=== PATIENT | male | born 1945 | race Hispanic/Latino ===

== ENCOUNTER → 2017-11-01 | Outpatient (CLI) | payer MEDICARE | END | disposition home or self-care (01) | LOC: RAH 11:32 | PROVIDERS: ATTEND Urology | DX: N28.1 Cyst of kidney, acquired (principal) | CPT/HCPCS: 76770 ==

== ENCOUNTER 2017-11-03 13:10 | Emergency (ER) | payer MEDICARE ==
[2017-11-03] MEDS ORDERED: TETANUS/DIPHTHERIA TOXOID [ADULT] 0.5 ML VIAL IM ONE (15:03)
== END 2017-11-03 15:10 | disposition home or self-care (01) ==
LOC: EDH 13:10
DX: S01.01XA Laceration without foreign body of scalp, initial encounter (principal); I10 Essential (primary) hypertension; E78.5 Hyperlipidemia, unspecified; Z98.890 Other specified postprocedural states; Z88.0 Allergy status to penicillin; Z87.891 Personal history of nicotine dependence; W18.39XA Other fall on same level, initial encounter; Y93.89 Activity, other specified; Y92.098 Other place in other non-institutional residence as the place of occurrence of the external cause; Y99.8 Other external cause status
CPT/HCPCS: 12032; 70450; 90471; 90714

== ENCOUNTER 2018-12-19 07:13 | Day surgery (SDC) | payer MEDICARE ==
[~2018-12-19 07:13] MED LIST: CLOP75TA14 PO; LISI-617 PO; SODIUM CHLORIDE 0.9% 1000ML 1,000 ML IV ONE
[2018-12-19 07:55] VITALS: BP 174/91
[2018-12-19] MEDS ORDERED: PREG50 PO (07:59)
[2018-12-19] MEDS ORDERED: LISI40TA4 PO (07:59)
[2018-12-19] MEDS ORDERED: ATOR40TA71 PO (07:59)
[2018-12-19 08:07] LABS: BASOPHILS % (AUTO) 0.5 % (0.0-5.0); HEMATOCRIT 40.8 % (42-54); MEAN CORPUSCULAR HEMOGLOBIN 31.4 pg (27.0-33.0); MEAN CORPUSCULAR HGB CONC 33.5 g/dL (32.0-36.0); MEAN CORPUSCULAR VOLUME 93.9 fL (79-99); MONOCYTES % (AUTO) 10.3 % (3.0-13.0); NEUTROPHILS % (AUTO) 70.2 % (40.0-77.0); PLATELET COUNT (AUTO) 155 K/uL (130-400); RED BLOOD CELL COUNT(AUTO) 4.35 MIL/uL (4.50-6.20); RED CELL DISTRIBUTION WIDTH 13.4 % (11.0-15.5); WHITE BLOOD COUNT (AUTO) 6.8 K/uL (4.8-10.8)
[2018-12-19 08:35] LABS: INR 1.1 (0.85-1.15); PROTHROMBIN TIME 11.5 SEC (9.6-11.6)
[2018-12-19 09:29] VITALS: BP 124/69
[2018-12-19 09:34] VITALS: BP 113/65
[2018-12-19 09:39] VITALS: BP 123/72
[2018-12-19 09:44] VITALS: BP 120/72
[2018-12-19 09:49] VITALS: BP 118/72
--- NOTE | 2018-12-19 09:57 | NUR ---
dc pt dc home via [facility],no distress noted. denies any pain or discomforts. accompanied by spouse, dc instructions given to pt spouse earlier, instructed to f/u with dr. neumann, continue home meds. pts spouse verbalized understanding .
== END 2018-12-19 09:57 | disposition home or self-care (01) ==
LOC: ENDO 07:13
PROVIDERS: ATTEND Internal Medicine
DX: K44.9 Diaphragmatic hernia without obstruction or gangrene (principal); K86.89 Other specified diseases of pancreas; I25.10 Atherosclerotic heart disease of native coronary artery without angina pectoris; E78.5 Hyperlipidemia, unspecified; I10 Essential (primary) hypertension; Z79.899 Other long term (current) drug therapy; Z85.46 Personal history of malignant neoplasm of prostate; Z98.890 Other specified postprocedural states; Z87.891 Personal history of nicotine dependence; Z86.73 Personal history of transient ischemic attack (TIA), and cerebral infarction without residual deficits
CPT/HCPCS: 36415; 43237; 85025; 85610; 93005; A4606; J7030; 43232

== ENCOUNTER → 2020-11-02 | Outpatient (CLI) | payer MEDICARE ==
[~2020-11-02] MED LIST changes: +ATOR40TA71 PO; -LISI-617 PO; +LISI40TA9 PO; +PERFLUTREN PROTEIN-A MICROSPHR 0.22 MG/ML VIAL IV ONE; +PREG50 PO; -SODIUM CHLORIDE 0.9% 1000ML 1,000 ML IV ONE
== END | disposition home or self-care (01) ==
LOC: RAH 09:09
PROVIDERS: ATTEND Internal Medicine Cardiovascular Disease
DX: I35.1 Nonrheumatic aortic (valve) insufficiency (principal); R94.31 Abnormal electrocardiogram [ECG] [EKG]
CPT/HCPCS: C8929; Q9956; 93356

== ENCOUNTER → 2020-11-04 | Outpatient (CLI) | payer MEDICARE ==
[~2020-11-04] MED LIST changes: -PERFLUTREN PROTEIN-A MICROSPHR 0.22 MG/ML VIAL IV ONE; +REGADENOSON 0.4 MG/5 ML PF SYG IVP SCH
== END | disposition home or self-care (01) ==
LOC: SHCH 08:39
PROVIDERS: ATTEND Internal Medicine Cardiovascular Disease
DX: I25.10 Atherosclerotic heart disease of native coronary artery without angina pectoris (principal); R06.00 Dyspnea, unspecified
CPT/HCPCS: 78452; 93017; 96374; A9500 ×2

== ENCOUNTER 2020-11-17 08:33 | Day surgery (SDC) | payer MEDICARE ==
[2020-11-15 13:46] LABS: BASOPHILS % (AUTO) 0.4 % (0.0-5.0); EOSINOPHILS % (AUTO) 1.9 % (0.0-8.0); LYMPHOCYTES % (AUTO) 22.1 % (21.0-51.0); MEAN CORPUSCULAR HEMOGLOBIN 30.7 pg (27.0-33.0); MEAN CORPUSCULAR HGB CONC 32.7 g/dL (32.0-36.0); MONOCYTES % (AUTO) 11.1 % (3.0-13.0); NEUTROPHILS % (AUTO) 64.3 % (40.0-77.0); PLATELET COUNT (AUTO) 169 K/uL (130-400); RED BLOOD CELL COUNT(AUTO) 4.36 MIL/uL (4.50-6.20); RED CELL DISTRIBUTION WIDTH 13.2 % (11.0-15.5); WHITE BLOOD COUNT (AUTO) 8.4 K/uL (4.8-10.8)
[2020-11-15 13:56] LABS: INR 1.09 (0.85-1.15); POTASSIUM 4.5 mmol/L (3.5-5.1); PROTHROMBIN TIME 11.8 SEC (9.6-11.6)
[2020-11-15 13:58] LABS: PARTIAL THROMBOPLASTIN TIME 27.6 SEC (26.3-35.5)
[~2020-11-17] VITALS: Ht 175.3 cm; Wt 104.3 kg
[2020-11-17] VITALS (10 sets, daily range): BP systolic 147–173; BP diastolic 68–94
[~2020-11-17 08:33] MED LIST changes: +AMLO2.5T4 PO; +ASPI-1443 PO; -ATOR40TA71 PO; -LISI40TA9 PO; -PREG50 PO; -REGADENOSON 0.4 MG/5 ML PF SYG IVP SCH; +TAMS-1 PO; +[UNRECOGNIZED DRUG - OTHER] PO
[2020-11-17] MEDS ORDERED: HYDR12.54 PO (09:44)
[2020-11-17] MEDS ORDERED: SODIUM CHLORIDE 0.9% 1000ML 1,000 ML IV ONE (09:53)
[2020-11-17 10:29] LABS: APPEARANCE,URINE Clear (CLEAR); BILIRUBIN,URINE Negative (NEGATIVE); COLOR,URINE Yellow (YELLOW); GLUCOSE, URINE (UA) Negative (NEGATIVE); KETONES,URINE Negative (NEGATIVE); LEUKOCYTE ESTERASE ,URINE Small (NEGATIVE); NITRATE,URINE Negative (NEGATIVE); OCCULT BLOOD,URINE Negative (NEGATIVE); PROTEIN,URINE Negative (NEGATIVE)
[2020-11-17 10:44] LABS: BACTERIA,URINE Few /HPF (None Seen); RBC,URINE 0-1 /HPF (0-1)
[2020-11-17] MEDS ORDERED: IOHEXOL-350 75 ML VIAL IV ONE (10:58)
[2020-11-17] MEDS ORDERED: SODIUM BICARB 50MEQ 50ML VIAL 50 ML ONE (10:58)
[2020-11-17] MEDS ORDERED: NITROGLYCERIN 2 MG/VIAL VIAL IV ONE (10:58)
[2020-11-17] MEDS ORDERED: HEPARIN SODIUM 1000UNIT/ML 10ML VIAL ONE (10:58)
[2020-11-17] MEDS ORDERED: LIDOCAINE HCL 400MG/20ML VIAL ONE (10:58)
[2020-11-17] MEDS ORDERED: NICARDIPINE HCL 25 MG/10 ML ML IV ONE (10:58)
[2020-11-17] MEDS ORDERED: IOHEXOL 350 MG/ML 100ML INFUS..BTL IV ONE ×2 (11:22→12:13)
[2020-11-17] MEDS ORDERED: BIVALIRUDIN 250 MG/VIAL IV ONE (11:38)
[2020-11-17] MEDS ORDERED: MIDAZOLAM HCL 1 MG/ML 2ML VIAL ONE (11:38)
[2020-11-17] MEDS ORDERED: FENTANYL CITRATE PF 50 MCG/1 ML 2ML VIAL ONE (11:38)
[2020-11-17] MEDS ORDERED: ENALAPRILAT DIHYDRATE 1.25 MG/ML 2ML VIAL IVP ONE (12:38)
[2020-11-17] MEDS ORDERED: GLUCAGON 1MG KIT 1 MG ML IM PRN (12:45)
[2020-11-17] MEDS ORDERED: SODIUM CHLORIDE 0.9% 1000ML 1,000 ML IV SCH (12:45)
[2020-11-17] MEDS ORDERED: DEXTROSE 50%-WATER 50 ML DISP.SYRIN IV PRN (12:45)
[2020-11-17] MEDS ORDERED: HYDR25TA PO (12:49)
[2020-11-17] MEDS ORDERED: LOSA25TA41 PO (12:49)
[2020-11-17] MEDS ORDERED: AMLO-257 PO (12:49)
== END 2020-11-17 17:10 | disposition home or self-care (01) ==
LOC: DAH 08:33
PROVIDERS: ATTEND Internal Medicine Cardiovascular Disease
DX: I25.10 Atherosclerotic heart disease of native coronary artery without angina pectoris (principal); I27.20 Pulmonary hypertension, unspecified; Z20.822 Contact with and (suspected) exposure to COVID-19; I11.0 Hypertensive heart disease with heart failure; I50.42 Chronic combined systolic (congestive) and diastolic (congestive) heart failure; E78.5 Hyperlipidemia, unspecified; I49.1 Atrial premature depolarization; E66.9 Obesity, unspecified; G62.9 Polyneuropathy, unspecified; I24.9 Acute ischemic heart disease, unspecified; Z79.01 Long term (current) use of anticoagulants; Z68.33 Body mass index [BMI] 33.0-33.9, adult; Z98.890 Other specified postprocedural states; Z80.42 Family history of malignant neoplasm of prostate
CPT/HCPCS: 36415; 71045; 80048; 81001; 82948; 85025; 85610; 85730; 93005; 93460; A4215; A4216; A4221; A4222; A4223 ×3; A4335; A4606; A4663; C1760; C1769; C1894 ×4; J1644; J3490 ×4; J7030; Q9965 ×2; Q9967 ×2; 96360; 96361; J0583; J2250; J3010

== ENCOUNTER 2021-06-05 19:43 | Observation (INO) | payer OTHER, MEDICARE ==
[~2021-06-05] VITALS: Ht 160 cm; Wt 98.6 kg
[~2021-06-05 19:43] MED LIST changes: +AMLO-257 PO; -AMLO2.5T4 PO; +HYDR25TA PO; +LOSA25TA41 PO
[2021-06-05 20:05] LABS: BASOPHILS % (AUTO) 0.2 % (0.0-5.0); EOSINOPHILS % (AUTO) 0.2 % (0.0-8.0); LYMPHOCYTES % (AUTO) 16.3 % (21.0-51.0); MEAN CORPUSCULAR HEMOGLOBIN 29.8 pg (27.0-33.0); MEAN CORPUSCULAR HGB CONC 32.3 g/dL (32.0-36.0); MEAN CORPUSCULAR VOLUME 92.1 fL (79-99); MONOCYTES % (AUTO) 13.1 % (3.0-13.0); NEUTROPHILS % (AUTO) 69.9 % (40.0-77.0); PLATELET COUNT (AUTO) 149 K/uL (130-400); RED BLOOD CELL COUNT(AUTO) 4.67 MIL/uL (4.50-6.20); RED CELL DISTRIBUTION WIDTH 13.2 % (11.0-15.5); WHITE BLOOD COUNT (AUTO) 11.5 K/uL (4.8-10.8)
[2021-06-05] MEDS ORDERED: NITROGLYCERIN 1GM OINT 1 INCH/1GM TD ONE ×2 (20:23→20:30)
[2021-06-05] MEDS ORDERED: ASPIRIN 325MG TAB ONE (20:23)
[2021-06-05] MEDS ORDERED: NITROGLYCERIN 0.4 MG SL TAB SL ONE (20:27)
[2021-06-05 20:28] LABS: POTASSIUM 3.8 mmol/L (3.5-5.1)
[2021-06-05 20:29] LABS: B-TYPE NATRIURETIC PEPTIDE 89 pg/mL (0-100)
[2021-06-05 20:30] LABS: INR 1.1 (0.85-1.15); PROTHROMBIN TIME 11.9 SEC (9.6-11.6)
[2021-06-05] MEDS ORDERED: ASPIRIN 325MG TAB PO ONE (20:30)
[2021-06-05] MEDS ORDERED: NITROGLYCERIN 0.4 MG SL TAB SL PRN ×2 (20:30→22:00)
[2021-06-05 20:33] LABS: ALBUMIN 3.9 g/dL (3.5-5.0); TOTAL PROTEIN, SERUM 8.5 g/dL (6.0-8.3)
[2021-06-05] MEDS ORDERED: GLUCAGON 1MG KIT 1 MG ML IM PRN (22:00)
[2021-06-05] MEDS: NITROGLYCERIN 1GM OINT 1 INCH/1GM TD SCH (22:00)
[2021-06-05] MEDS ORDERED: HYDRALAZINE 20MG/ML VIAL IV PRN (22:00)
[2021-06-05] MEDS ORDERED: LACTULOSE 20 GM/30 ML UDCUP PO PRN (22:00)
[2021-06-05] MEDS ORDERED: ONDANSETRON 4MG INJ IV PRN (22:00)
[2021-06-05] MEDS ORDERED: ACETAMINOPHEN 325 MG TAB PO PRN ×2 (22:00)
[2021-06-05] MEDS ORDERED: DEXTROSE 50%-WATER 50 ML DISP.SYRIN IV PRN (22:00)
[2021-06-06] VITALS (8 sets, daily range): BP systolic 105–149; BP diastolic 54–90
[2021-06-06 05:18] LABS: BASOPHILS % (AUTO) 0.2 % (0.0-5.0); EOSINOPHILS % (AUTO) 0.4 % (0.0-8.0); HEMATOCRIT 35.8 % (42-54); LYMPHOCYTES % (AUTO) 16.8 % (21.0-51.0); MEAN CORPUSCULAR HGB CONC 32.7 g/dL (32.0-36.0); MEAN CORPUSCULAR VOLUME 91.8 fL (79-99); MONOCYTES % (AUTO) 12.8 % (3.0-13.0); NEUTROPHILS % (AUTO) 69.5 % (40.0-77.0); PLATELET COUNT (AUTO) 143 K/uL (130-400); RED CELL DISTRIBUTION WIDTH 13.4 % (11.0-15.5); WHITE BLOOD COUNT (AUTO) 9.9 K/uL (4.8-10.8)
[2021-06-06 05:35] LABS: HEMOGLOBIN A1C 6.3 % (4.0-6.0)
[2021-06-06 05:42] LABS: CREATININE 0.9 mg/dL (0.5-1.5); MAGNESIUM 1.9 mg/dL (1.80-2.40); POTASSIUM 3.4 mmol/L (3.5-5.1); THYROID STIMULATING HORMONE 0.54 uIU/mL (0.36-3.74)
[2021-06-06] MEDS: NITROGLYCERIN 1GM OINT 1 INCH/1GM TD SCH (06:48)
[2021-06-06] MEDS ORDERED: NITROGLYCERIN 1GM OINT 1 INCH/1GM TD PRN (08:00)
[2021-06-06] MEDS ORDERED: POTASSIUM CHLORIDE 20MEQ/100ML 100 ML IV PRN (08:30)
[2021-06-06] MEDS ORDERED: MAGNESIUM 2GM PREMIX 50ML 50 ML IV PRN (08:30)
[2021-06-06] MEDS ORDERED: POTASSIUM CHLORIDE 10% ELIXIR 20 MEQ/15 ML UDCUP PO PRN (08:30)
[2021-06-06] MEDS ORDERED: LIDOCAINE HCL-MPF 1% 2ML VIAL IV PRN (08:30)
[2021-06-06] MEDS ORDERED: METOPROLOL TARTRATE 25 MG TAB PO SCH (09:00)
[2021-06-06] MEDS: ASPIRIN 81 MG EC TAB PO SCH (09:39)
[2021-06-06] MEDS: ISOSORBIDE MONO 60MG SR TAB PO SCH (09:39)
[2021-06-06] MEDS: FAMOTIDINE 20MG TAB PO SCH ×2 (09:39→20:53)
[2021-06-06] MEDS: METOPROLOL TARTRATE 50 MG TAB PO SCH ×2 (09:40→20:53)
[2021-06-06] MEDS: ENOXAPARIN SODIUM 100 MG/1 ML SQ SCH ×2 (09:41→20:54)
[2021-06-06] MEDS ORDERED: FAMOTIDINE 20MG TAB ONE (20:50)
[2021-06-06] MEDS ORDERED: METOPROLOL TARTRATE 50 MG TAB ONE (20:50)
[2021-06-06] MEDS ORDERED: ATORVASTATIN 40 MG TABLET ONE (20:50)
[2021-06-06] MEDS ORDERED: ENOXAPARIN SODIUM 100 MG/1 ML SQ ONE (20:51)
[2021-06-06] MEDS ORDERED: ATORVASTATIN 40 MG TABLET PO SCH (21:00)
[2021-06-07 04:00] VITALS: BP 131/66
[2021-06-07 08:00] VITALS: BP 129/71
[2021-06-07 08:14] LABS: CREATININE 0.9 mg/dL (0.5-1.5); POTASSIUM 3.5 mmol/L (3.5-5.1)
[2021-06-07] MEDS: ENOXAPARIN SODIUM 100 MG/1 ML SQ SCH (08:53)
[2021-06-07] MEDS: KCL 20 MEQ ERTAB PO PRN ×2 (08:53→11:21)
[2021-06-07] MEDS: METOPROLOL TARTRATE 50 MG TAB PO SCH (08:54)
[2021-06-07] MEDS: ASPIRIN 81 MG EC TAB PO SCH (08:54)
[2021-06-07] MEDS: FAMOTIDINE 20MG TAB PO SCH (08:54)
[2021-06-07] MEDS: ISOSORBIDE MONO 60MG SR TAB PO SCH (08:54)
[2021-06-07 12:00] VITALS: BP 121/66
[2021-06-07 16:00] VITALS: BP 125/68
[2021-06-07] MEDS ORDERED: ISOS60TA77 PO (17:29)
[2021-06-07] MEDS ORDERED: METO25TA6 PO (17:29)
[2021-06-08] MEDS ORDERED: ASPIRIN 81 MG EC TAB PO SCH (09:00)
[2021-06-08] MEDS ORDERED: CLOPIDOGREL 75MG TAB PO SCH (09:00)
[2021-06-08] MEDS ORDERED: TAMSULOSIN HCL 0.4 MG CAP.ER.24H PO SCH (09:00)
[2021-06-08] MEDS ORDERED: LOSARTAN 25 MG TABLET PO SCH (09:00)
[2021-06-08] MEDS ORDERED: AMLODIPINE 5 MG TAB PO SCH (09:00)
[2021-06-08] MEDS ORDERED: HYDROCHLOROTHIAZIDE 25 MG TABLET PO SCH (09:00)
== END 2021-06-07 18:34 | disposition home or self-care (01) ==
LOC: EDH 19:43 → EDHIP 21:53 → 3DH 06-06 00:16 → UNDODISOB 06-06 19:22 → 2AH 06-06 21:28
PROVIDERS: ADMIT Internal Medicine; ATTEND Internal Medicine
DX: U07.1 COVID-19 (principal); I25.110 Atherosclerotic heart disease of native coronary artery with unstable angina pectoris; R07.89 Other chest pain; I10 Essential (primary) hypertension; E78.5 Hyperlipidemia, unspecified; A01.4 Paratyphoid fever, unspecified; J96.11 Chronic respiratory failure with hypoxia; J44.9 Chronic obstructive pulmonary disease, unspecified; R73.03 Prediabetes; Z79.02 Long term (current) use of antithrombotics/antiplatelets; Z87.891 Personal history of nicotine dependence; Z79.82 Long term (current) use of aspirin; Z95.1 Presence of aortocoronary bypass graft
CPT/HCPCS: 36415 ×3; 71045; 80048 ×2; 80053; 80061; 82550 ×3; 82948 ×4; 83036; 83735 ×2; 83874 ×2; 83880 ×2; 84443; 84484 ×3; 85025 ×2; 85610; 85730; 87635; 93005 ×2; 94760 ×2; 96372 ×2; 99285; G0378 ×45; J1650 ×3

== ENCOUNTER → 2021-10-24 | Outpatient (CLI) | payer OTHER, MEDICARE ==
[~2021-10-24] MED LIST changes: -AMLO-257 PO; -HYDR25TA PO; +ISOS60TA77 PO; -LOSA25TA41 PO; +METO25TA6 PO
[2021-10-24 12:44] LABS: BASOPHILS % (AUTO) 0.3 % (0.0-5.0); EOSINOPHILS % (AUTO) 2.1 % (0.0-8.0); HEMATOCRIT 40.9 % (42-54); LYMPHOCYTES % (AUTO) 21.9 % (21.0-51.0); MEAN CORPUSCULAR HEMOGLOBIN 30.1 pg (27.0-33.0); MEAN CORPUSCULAR HGB CONC 32.3 g/dL (32.0-36.0); MEAN CORPUSCULAR VOLUME 93.2 fL (79-99); MONOCYTES % (AUTO) 9.4 % (3.0-13.0); NEUTROPHILS % (AUTO) 65.9 % (40.0-77.0); PLATELET COUNT (AUTO) 187 K/uL (130-400); RED BLOOD CELL COUNT(AUTO) 4.39 MIL/uL (4.50-6.20); RED CELL DISTRIBUTION WIDTH 13.4 % (11.0-15.5); WHITE BLOOD COUNT (AUTO) 8.9 K/uL (4.8-10.8)
[2021-10-24 12:59] LABS: ALBUMIN 3.6 g/dL (3.5-5.0); BILIRUBIN,TOTAL 0.8 mg/dL (0.2-1.0); CREATININE 0.9 mg/dL (0.5-1.5); POTASSIUM 4.5 mmol/L (3.5-5.1); TOTAL PROTEIN, SERUM 7.7 g/dL (6.0-8.3)
== END | disposition home or self-care (01) ==
LOC: LAB 09:12
PROVIDERS: ATTEND Internal Medicine Cardiovascular Disease
DX: I25.10 Atherosclerotic heart disease of native coronary artery without angina pectoris (principal); E78.00 Pure hypercholesterolemia, unspecified
CPT/HCPCS: 36415; 80053; 80061; 85025

== ENCOUNTER → 2022-01-19 | Outpatient (CLI) | payer OTHER, MEDICARE ==
[2022-01-19 12:38] LABS: ALBUMIN 3.6 g/dL (3.5-5.0); POTASSIUM 4.3 mmol/L (3.5-5.1); TOTAL PROTEIN, SERUM 7.7 g/dL (6.0-8.3)
== END | disposition home or self-care (01) ==
LOC: LAB 09:27
PROVIDERS: ATTEND Internal Medicine Cardiovascular Disease
DX: E78.5 Hyperlipidemia, unspecified (principal)
CPT/HCPCS: 36415; 80053; 80061

== ENCOUNTER 2022-02-02 07:04 | Day surgery (SDC) | payer OTHER, MEDICARE ==
[2022-01-31 13:58] LABS: BASOPHILS % (AUTO) 0.2 % (0.0-5.0); EOSINOPHILS % (AUTO) 1.4 % (0.0-8.0); HEMATOCRIT 40.9 % (42-54); LYMPHOCYTES % (AUTO) 22.4 % (21.0-51.0); MEAN CORPUSCULAR HEMOGLOBIN 29.2 pg (27.0-33.0); MEAN CORPUSCULAR HGB CONC 32.5 g/dL (32.0-36.0); MEAN CORPUSCULAR VOLUME 89.7 fL (79-99); MONOCYTES % (AUTO) 13.6 % (3.0-13.0); NEUTROPHILS % (AUTO) 62.1 % (40.0-77.0); PLATELET COUNT (AUTO) 181 K/uL (130-400); RED BLOOD CELL COUNT(AUTO) 4.56 MIL/uL (4.50-6.20); RED CELL DISTRIBUTION WIDTH 13.8 % (11.0-15.5); WHITE BLOOD COUNT (AUTO) 8.7 K/uL (4.8-10.8)
[2022-01-31 14:11] LABS: CREATININE 0.9 mg/dL (0.5-1.5); POTASSIUM 3.9 mmol/L (3.5-5.1)
[2022-01-31 14:15] LABS: INR 1.07 (0.85-1.15); PROTHROMBIN TIME 11.6 SEC (9.6-11.6)
[2022-01-31 14:16] LABS: PARTIAL THROMBOPLASTIN TIME 29.2 SEC (26.3-35.5)
[2022-01-31 15:32] LABS: B-TYPE NATRIURETIC PEPTIDE 55 pg/mL (0-100)
[2022-02-01 12:19] VITALS: BP 155/86
[2022-02-02] VITALS (7 sets, daily range): BP systolic 106–138; BP diastolic 60–73
[~2022-02-02] VITALS: Ht 170.2 cm; Wt 100.1 kg
[~2022-02-02 07:04] MED LIST changes: +0.9% NACL 500ML IV.SOLN 500 ML IV SCH; +AMLO-257 PO; +ATOR40TA69 PO; +EZET10TA48 PO; -ISOS60TA77 PO; +LOSA25TA41 PO; +MELO-106 PO; +METO-408 PO; -METO25TA6 PO
[2022-02-02] MEDS ORDERED: BICA50TA7 PO (08:12)
[2022-02-02] MEDS ORDERED: ALBU8.5H8 IH (08:13)
[2022-02-02] MEDS: 0.9%NACL 1000ML 1,000 ML IV ONE (08:14)
[2022-02-02] MEDS ORDERED: FENTANYL CITRATE PF 50 MCG/1 ML 2ML VIAL ONE (10:33)
[2022-02-02] MEDS ORDERED: LIDOCAINE HCL 1% 20 ML VIAL ONE (10:33)
[2022-02-02] MEDS ORDERED: HEPARIN 10,000 UNIT/10ML (1,000 UNIT/ML) VIAL ONE (10:33)
[2022-02-02] MEDS ORDERED: NITROGLYCERIN 50MG VIAL ONE (10:33)
[2022-02-02] MEDS ORDERED: IOHEXOL 350 MG/ML 100ML INFUS..BTL IV ONE (10:33)
[2022-02-02] MEDS ORDERED: SODIUM BICARB 50MEQ 50ML VIAL 50 ML ONE (10:33)
[2022-02-02] MEDS ORDERED: MIDAZOLAM HCL 1 MG/ML 2ML VIAL ONE (10:33)
[2022-02-02] MEDS ORDERED: 0.9% NACL 500ML IV.SOLN 500 ML IV SCH (11:30)
== END 2022-02-02 14:00 | disposition home or self-care (01) ==
LOC: DAH 07:04
PROVIDERS: ATTEND Internal Medicine Cardiovascular Disease
DX: I25.110 Atherosclerotic heart disease of native coronary artery with unstable angina pectoris (principal); I27.20 Pulmonary hypertension, unspecified; I11.0 Hypertensive heart disease with heart failure; I50.32 Chronic diastolic (congestive) heart failure; E78.5 Hyperlipidemia, unspecified; I49.1 Atrial premature depolarization; M17.0 Bilateral primary osteoarthritis of knee; Z98.890 Other specified postprocedural states; Z85.46 Personal history of malignant neoplasm of prostate; Z79.01 Long term (current) use of anticoagulants; Z79.899 Other long term (current) drug therapy; Z79.82 Long term (current) use of aspirin; Z95.5 Presence of coronary angioplasty implant and graft
CPT/HCPCS: 80048; 83880; 85025; 85610; 85730; 36415; 71045; 93005; 93458; 93571; C1887; C1894 ×2; C1760; C1769; J3010; J7030 ×2; J3490 ×2; J1644 ×2; J2250; Q9967; A4215; A4222; A4221; A4663; A4216; A4606; Q9965; A4223 ×3; 96360; 96361; 99156; 99157

== ENCOUNTER → 2023-04-02 | Outpatient (CLI) | payer OTHER, MEDICARE ==
[~2023-04-02] MED LIST changes: -0.9% NACL 500ML IV.SOLN 500 ML IV SCH; +ALBU8.5H8 IH; +BICA50TA7 PO; +CLOP-31 PO; -CLOP75TA14 PO; -[UNRECOGNIZED DRUG - OTHER] PO
[2023-04-02 12:16] LABS: BASOPHILS # (AUTO) 0.02 K/uL (0.00-0.20); BASOPHILS % (AUTO) 0.2 % (0.0-5.0); EOSINOPHILS # (AUTO) 0.09 K/uL (0.00-0.70); HEMATOCRIT 38.5 % (42-54); IMMATURE GRANULOCYTE ABSOLUTE 0.03 K/uL (0-1); LYMPHOCYTES % (AUTO) 22.1 % (21.0-51.0); MEAN CORPUSCULAR HEMOGLOBIN 23.3 pg (27.0-33.0); MEAN CORPUSCULAR HGB CONC 29.6 g/dL (32.0-36.0); MEAN CORPUSCULAR VOLUME 78.6 fL (79-99); MONOCYTES # (AUTO) 0.8 K/uL (0.1-1.0); MONOCYTES % (AUTO) 9.2 % (3.0-13.0); NEUTROPHILS % (AUTO) 67.2 % (40.0-77.0); PLATELET COUNT (AUTO) 232 K/uL (130-400); RED CELL DISTRIBUTION WIDTH 19.5 % (11.0-15.5); WHITE BLOOD COUNT (AUTO) 8.9 K/uL (4.8-10.8)
[2023-04-02 12:29] LABS: ALBUMIN 3.4 g/dL (3.5-5.0); BILIRUBIN,TOTAL 0.8 mg/dL (0.2-1.0); CREATININE 1.2 mg/dL (0.5-1.5); POTASSIUM 4.7 mmol/L (3.5-5.1); TOTAL PROTEIN, SERUM 7.7 g/dL (6.0-8.3)
== END | disposition home or self-care (01) ==
LOC: LAB 08:27
PROVIDERS: ATTEND Internal Medicine Cardiovascular Disease
DX: I50.32 Chronic diastolic (congestive) heart failure (principal); I48.0 Paroxysmal atrial fibrillation; R00.1 Bradycardia, unspecified; D68.59 Other primary thrombophilia
CPT/HCPCS: 36415; 80053; 80061; 85025

== ENCOUNTER 2023-05-29 13:32 | Inpatient (IN) | payer OTHER, MEDICARE ==
[~2023-05-29] VITALS: Ht 167.6 cm; Wt 132.4 kg
[2023-05-29] MEDS ORDERED: CEFTRIAXONE 2GM VIAL IVPB ONE (14:00)
[2023-05-29] MEDS ORDERED: 0.9%NACL 1000ML 2,121 ML IV ONE (14:00)
[2023-05-29] MEDS ORDERED: ENOXAPARIN SODIUM 100 MG/1 ML SQ ONE (14:30)
[2023-05-29] MEDS ORDERED: ALBUTEROL 0.083% 2.5 MG/3 ML INH IH ONE (14:30)
[2023-05-29 14:39] VITALS: PULSE 81; RESP 20
[2023-05-29 14:44] LABS: RAPID GROUP A STREP negative (NEGATIVE)
[2023-05-29 14:53] LABS: BASOPHILS # (AUTO) 0.01 K/uL (0.00-0.20); BASOPHILS % (AUTO) 0.1 % (0.0-5.0); EOSINOPHILS # (AUTO) 0.01 K/uL (0.00-0.70); EOSINOPHILS % (AUTO) 0.1 % (0.0-8.0); HEMATOCRIT 42.3 % (42-54); IMMATURE GRANULOCYTE ABSOLUTE 0.04 K/uL (0-1); LYMPHOCYTES # (AUTO) 0.7 K/uL (1.0-4.8); LYMPHOCYTES % (AUTO) 6.5 % (21.0-51.0); MEAN CORPUSCULAR HEMOGLOBIN 26.5 pg (27.0-33.0); MEAN CORPUSCULAR HGB CONC 31.7 g/dL (32.0-36.0); MEAN CORPUSCULAR VOLUME 83.6 fL (79-99); MONOCYTES # (AUTO) 0.9 K/uL (0.1-1.0); MONOCYTES % (AUTO) 8.8 % (3.0-13.0); NEUTROPHILS # (AUTO) 8.9 K/uL (1.8-7.7); NEUTROPHILS % (AUTO) 84.1 % (40.0-77.0); PLATELET COUNT (AUTO) 168 K/uL (130-400); RED BLOOD CELL COUNT(AUTO) 5.06 MIL/uL (4.50-6.20); WHITE BLOOD COUNT (AUTO) 10.6 K/uL (4.8-10.8)
[2023-05-29 14:55] LABS: INFLUENZA TYPE A Negative For Type A (NEGATIVE); INFLUENZA TYPE B Negative For Type B (NEGATIVE)
[2023-05-29 15:01] LABS: CREATININE 1.1 mg/dL (0.5-1.5); POTASSIUM 4.4 mmol/L (3.5-5.1)
[2023-05-29 15:03] LABS: SARS-CoV-2, RNA, NAAT POSITIVE SARS CoV-2 (NEGATIVE)
[2023-05-29 15:10] LABS: APPEARANCE,URINE CLEAR (CLEAR); BILIRUBIN,URINE NEGATIVE (NEGATIVE); COLOR,URINE LIGHT-YELLOW (YELLOW); GLUCOSE, URINE (UA) NEGATIVE (NEGATIVE); KETONES,URINE NEGATIVE (NEGATIVE); LEUKOCYTE ESTERASE ,URINE NEGATIVE Leu/uL (NEGATIVE); NITRATE,URINE NEGATIVE (NEGATIVE); OCCULT BLOOD,URINE NEGATIVE (NEGATIVE); PH,URINE 7.5 (5.0-8.0); PROTEIN,URINE 10 mg/dL (NEGATIVE); UROBILINOGEN,URINE 0.2 mg/dL (0.2-1.0)
[2023-05-29 15:12] LABS: ADD UA MICROSCOPIC YES
[2023-05-29 15:14] LABS: MAGNESIUM 1.7 mg/dL (1.80-2.40); THYROID STIMULATING HORMONE 0.48 uIU/mL (0.36-3.74)
[2023-05-29 15:14] LABS: MUCUS,URINE RARE LPF (None Seen); RBC,URINE 0-1 /HPF (0-1); SQUAMOUS EPITHELIAL CELL,UR RARE /HPF (0-2); WBC,URINE 0-1 /HPF (0-1)
[2023-05-29] MEDS ORDERED: HYDRALAZINE 20MG/ML VIAL IV PRN (17:30)
[2023-05-29] MEDS ORDERED: LACTULOSE 20 GM/30 ML UDCUP PO PRN (17:30)
[2023-05-29] MEDS ORDERED: TEMAZEPAM 15 MG CAPSULE PO PRN (17:30)
[2023-05-29] MEDS ORDERED: 0.9%NACL 1000ML 1,000 ML IV SCH ×2 (17:30→22:00)
[2023-05-29] MEDS: CEFTRIAXONE 1G VIAL IV SCH (17:30)
[2023-05-29] MEDS ORDERED: ACETAMINOPHEN 650 MG SUPPOSITORY RC PRN (17:30)
[2023-05-29] MEDS ORDERED: CLONIDINE HCL 0.1 MG TABLET PO PRN (17:30)
[2023-05-29] MEDS ORDERED: ONDANSETRON 4MG INJ IVP PRN (17:30)
[2023-05-29] MEDS: AZITHROMYCIN 500MG+NS 250ML IV SCH (17:56)
[2023-05-29 18:02] LABS: ABG BASE EXCESS 0.2 mmol/L (-2.0-3.0); ABG HCO3 23.1 mmol/L (21.0-28.0); ABG OXYGEN SATURATION 95.5 % (95.0-99.0); ABG PCO2 33 mmHg (35-48); ABG PH 7.469 (7.35-7.450); PO2, ARTERIAL BG 71.8 mmHg (83.0-108.0); VENT MODE, BG RA (ROOM AIR)
[2023-05-29] MEDS: ACETAMINOPHEN 325 MG TAB PO PRN (20:06)
[2023-05-29] MEDS: INSULIN HUMULIN R 100 UNIT/ML 3ML SQ SCH (21:00)
[2023-05-29] MEDS: METOPROLOL TARTRATE 25 MG TAB PO SCH (21:40)
[2023-05-29] MEDS ORDERED: MIDODRINE HCL 5 MG TABLET PO SCH (22:00)
[2023-05-29 22:23] VITALS: PULSE 71; RESP 20; O2SAT 97
[2023-05-29 22:48] LABS: APPEARANCE,URINE CLEAR (CLEAR); BILIRUBIN,URINE NEGATIVE (NEGATIVE); COLOR,URINE LIGHT-YELLOW (YELLOW); GLUCOSE, URINE (UA) NEGATIVE (NEGATIVE); KETONES,URINE NEGATIVE (NEGATIVE); LEUKOCYTE ESTERASE ,URINE NEGATIVE Leu/uL (NEGATIVE); NITRATE,URINE NEGATIVE (NEGATIVE); OCCULT BLOOD,URINE NEGATIVE (NEGATIVE); PROTEIN,URINE 10 mg/dL (NEGATIVE); UROBILINOGEN,URINE 0.2 mg/dL (0.2-1.0)
[2023-05-29 22:52] LABS: ADD UA MICROSCOPIC NO
[2023-05-29 22:55] LABS: BACTERIA,URINE RARE /HPF (None Seen); SQUAMOUS EPITHELIAL CELL,UR RARE /HPF (0-2)
[2023-05-29 23:00] VITALS: BP 110/62; PULSE 60; RESP 20
[2023-05-29] MEDS: 0.9%NACL 1000ML 1,000 ML IV SCH (23:10)
[2023-05-30] VITALS (8 sets, daily range): BP systolic 101–134; BP diastolic 50–87; PULSE 50–73; RESP 16–20; TEMP 98.7; O2SAT 90–100
[2023-05-30] MEDS ORDERED: LOSA50TA64 PO (00:20)
[2023-05-30] MEDS ORDERED: PANT40TA54 PO (00:20)
[2023-05-30] MEDS ORDERED: SERT-439 PO (00:20)
[2023-05-30] MEDS: 0.9%NACL 1000ML 1,000 ML IV SCH ×2 (04:01→19:00)
[2023-05-30 04:09] LABS: BASOPHILS # (AUTO) 0.02 K/uL (0.00-0.20); BASOPHILS % (AUTO) 0.2 % (0.0-5.0); EOSINOPHILS # (AUTO) 0.01 K/uL (0.00-0.70); EOSINOPHILS % (AUTO) 0.1 % (0.0-8.0); HEMATOCRIT 35.8 % (42-54); IMMATURE GRANULOCYTE ABSOLUTE 0.03 K/uL (0-1); LYMPHOCYTES # (AUTO) 1.3 K/uL (1.0-4.8); LYMPHOCYTES % (AUTO) 15.3 % (21.0-51.0); MEAN CORPUSCULAR HEMOGLOBIN 26.6 pg (27.0-33.0); MEAN CORPUSCULAR HGB CONC 31.3 g/dL (32.0-36.0); MONOCYTES # (AUTO) 1.2 K/uL (0.1-1.0); NEUTROPHILS # (AUTO) 5.9 K/uL (1.8-7.7); PLATELET COUNT (AUTO) 152 K/uL (130-400); RED BLOOD CELL COUNT(AUTO) 4.21 MIL/uL (4.50-6.20); WHITE BLOOD COUNT (AUTO) 8.5 K/uL (4.8-10.8)
[2023-05-30 04:32] LABS: MAGNESIUM 1.7 mg/dL (1.80-2.40); PHOSPHORUS 4.2 mg/dL (2.5-4.9); POTASSIUM 4.3 mmol/L (3.5-5.1)
[2023-05-30 05:06] LABS: B-TYPE NATRIURETIC PEPTIDE 99 pg/mL (0-100)
[2023-05-30] MEDS: INSULIN HUMULIN R 100 UNIT/ML 3ML SQ SCH ×4 (05:55→20:13)
[2023-05-30] MEDS: ACETAMINOPHEN 325 MG TAB PO PRN (09:33)
[2023-05-30] MEDS: ASPIRIN 81MG CHEW TAB PO SCH (09:33)
[2023-05-30] MEDS: ASCORBIC ACID 500 MG TAB PO SCH (09:33)
[2023-05-30] MEDS: METOPROLOL TARTRATE 25 MG TAB PO SCH ×2 (09:33→20:14)
[2023-05-30] MEDS: PANTOPRAZOLE 40 MG TAB DR PO SCH (09:33)
[2023-05-30] MEDS: ENOXAPARIN SODIUM 40 MG/0.4 ML SYRINGE SQ SCH (09:36)
[2023-05-30] MEDS: DEXAMETHASONE SOD PHOSPHATE 10MG/ML 1ML VIAL IVP SCH (09:36)
[2023-05-30] MEDS: CEFTRIAXONE 1G VIAL IV SCH (17:37)
[2023-05-30] MEDS: AZITHROMYCIN 500MG+NS 250ML IV SCH (17:37)
[2023-05-31] VITALS (7 sets, daily range): BP systolic 103–155; BP diastolic 56–83; PULSE 50–94; RESP 16–21; O2SAT 94–99
[2023-05-31 04:10] LABS: HEMATOCRIT 32.7 % (42-54); MEAN CORPUSCULAR HGB CONC 30.9 g/dL (32.0-36.0); MEAN CORPUSCULAR VOLUME 84.1 fL (79-99); RED BLOOD CELL COUNT(AUTO) 3.89 MIL/uL (4.50-6.20); RED CELL DISTRIBUTION WIDTH 21.7 % (11.0-15.5); WHITE BLOOD COUNT (AUTO) 7.9 K/uL (4.8-10.8)
[2023-05-31 04:26] LABS: CREATININE 0.9 mg/dL (0.5-1.5); MAGNESIUM 1.7 mg/dL (1.80-2.40); PHOSPHORUS 3.7 mg/dL (2.5-4.9); POTASSIUM 4.1 mmol/L (3.5-5.1)
[2023-05-31] MEDS: 0.9%NACL 1000ML 1,000 ML IV SCH (04:52)
[2023-05-31] MEDS: INSULIN HUMULIN R 100 UNIT/ML 3ML SQ SCH ×3 (05:40→16:30)
[2023-05-31] MEDS: ENOXAPARIN SODIUM 40 MG/0.4 ML SYRINGE SQ SCH (09:10)
[2023-05-31] MEDS: ASPIRIN 81MG CHEW TAB PO SCH (09:10)
[2023-05-31] MEDS: ASCORBIC ACID 500 MG TAB PO SCH (09:10)
[2023-05-31] MEDS: METOPROLOL TARTRATE 25 MG TAB PO SCH (09:10)
[2023-05-31] MEDS: PANTOPRAZOLE 40 MG TAB DR PO SCH (09:10)
[2023-05-31] MEDS: DEXAMETHASONE SOD PHOSPHATE 10MG/ML 1ML VIAL IVP SCH (09:11)
[2023-05-31] MEDS ORDERED: MAGNESIUM 2GM PREMIX 50ML 50 ML IV PRN (09:30)
[2023-05-31] MEDS ORDERED: ZIT500IVPB PO (13:06)
[2023-05-31] MEDS ORDERED: PRED20TA3 PO (13:06)
== END 2023-05-31 18:30 | disposition home or self-care (01) | DRG 871 ==
LOC: EDH 13:32 → OBSVTOIN 17:01 → EDHIP 17:01 → 4AH 21:04 → OBSVTOIN 05-30 10:22 → INTOOBSV 05-30 10:22
PROVIDERS: ADMIT Internal Medicine Critical Care Medicine; ATTEND Internal Medicine Critical Care Medicine
DX: A41.9 Sepsis, unspecified organism (principal); J96.01 Acute respiratory failure with hypoxia; U07.1 COVID-19; E11.65 Type 2 diabetes mellitus with hyperglycemia; E78.5 Hyperlipidemia, unspecified; I10 Essential (primary) hypertension; I25.10 Atherosclerotic heart disease of native coronary artery without angina pectoris; Z95.1 Presence of aortocoronary bypass graft
CPT/HCPCS: 36415; 36600; 71045; 71250; 80048; 81001; 81003; 82803; 82948; 83735; 83880; 84100; 84145; 84443; 85025; 85027; 85378; 87635; 87804; 87880; 93306; 93356; 93970; 94640; 94760; 96365; 96372; C9803; G0378; J0456; J0696; J1100; J1650; J3475; J7030

== ENCOUNTER → 2023-06-19 | Outpatient (CLI) | payer OTHER, MEDICARE ==
[~2023-06-19] MED LIST changes: -AMLO-257 PO; -ASPI-1443 PO; -CLOP-31 PO; -EZET10TA48 PO; -LOSA25TA41 PO; +LOSA50TA64 PO; -MELO-106 PO; -METO-408 PO; +PANT40TA54 PO; +PRED20TA3 PO; +SERT-439 PO; +ZIT500IVPB PO
== END | disposition home or self-care (01) ==
LOC: LAB 09:04
PROVIDERS: ATTEND Internal Medicine Cardiovascular Disease
DX: I25.10 Atherosclerotic heart disease of native coronary artery without angina pectoris (principal)
CPT/HCPCS: 36415; 83880

== ENCOUNTER 2023-11-06 13:17 | Emergency (ER) | payer OTHER, MEDICARE ==
[~2023-11-06] VITALS: Ht 175.3 cm; Wt 97.7 kg
[~2023-11-06 13:17] MED LIST changes: +AEC81 PO; -ALBU8.5H8 IH; -BICA50TA7 PO; +CLOP75TA32 PO; +LEUP22.52 IM; -LOSA50TA64 PO; +Midodrine Hcl PO; -PRED20TA3 PO; -SERT-439 PO; -ZIT500IVPB PO
[2023-11-06 14:06] LABS: BASOPHILS # (AUTO) 0.01 K/uL (0.00-0.20); BASOPHILS % (AUTO) 0.1 % (0.0-5.0); EOSINOPHILS # (AUTO) 0.05 K/uL (0.00-0.70); EOSINOPHILS % (AUTO) 0.7 % (0.0-8.0); HEMATOCRIT 37.1 % (42-54); IMMATURE GRANULOCYTE ABSOLUTE 0.02 K/uL (0-1); LYMPHOCYTES # (AUTO) 1.6 K/uL (1.0-4.8); LYMPHOCYTES % (AUTO) 24.1 % (21.0-51.0); MEAN CORPUSCULAR HEMOGLOBIN 30.6 pg (27.0-33.0); MEAN CORPUSCULAR HGB CONC 33.2 g/dL (32.0-36.0); MEAN CORPUSCULAR VOLUME 92.3 fL (79-99); MONOCYTES # (AUTO) 0.6 K/uL (0.1-1.0); MONOCYTES % (AUTO) 9.1 % (3.0-13.0); NEUTROPHILS # (AUTO) 4.4 K/uL (1.8-7.7); NEUTROPHILS % (AUTO) 65.7 % (40.0-77.0); PLATELET COUNT (AUTO) 169 K/uL (130-400); RED BLOOD CELL COUNT(AUTO) 4.02 MIL/uL (4.50-6.20); WHITE BLOOD COUNT (AUTO) 6.7 K/uL (4.8-10.8)
[2023-11-06] MEDS: 0.9%NACL 1000ML 1,000 ML IV ONE (14:09)
[2023-11-06] MEDS: KETOROLAC 15MG/ML VIAL (15MG/ML) IV ONE (14:09)
[2023-11-06 14:14] VITALS: BP 139/71; PULSE 54; RESP 18
[2023-11-06 14:17] LABS: CREATININE 0.9 mg/dL (0.5-1.3); POTASSIUM 3.9 mmol/L (3.5-5.1)
[2023-11-06 14:22] LABS: ALBUMIN 3.1 g/dL (3.5-5.0); BILIRUBIN,TOTAL 0.6 mg/dL (0.2-1.0); TOTAL PROTEIN, SERUM 6.7 g/dL (6.0-8.3)
[2023-11-06] MEDS ORDERED: IOHEXOL-350 75 ML VIAL IV ONE (15:15)
[2023-11-06 16:26] LABS: APPEARANCE,URINE CLEAR (CLEAR); BILIRUBIN,URINE NEGATIVE (NEGATIVE); COLOR,URINE COLORLESS (YELLOW); GLUCOSE, URINE (UA) NEGATIVE (NEGATIVE); KETONES,URINE NEGATIVE (NEGATIVE); LEUKOCYTE ESTERASE ,URINE NEGATIVE Leu/uL (NEGATIVE); NITRATE,URINE NEGATIVE (NEGATIVE); OCCULT BLOOD,URINE NEGATIVE (NEGATIVE); PROTEIN,URINE NEGATIVE (NEGATIVE); UROBILINOGEN,URINE 0.2 mg/dL (0.2-1.0)
[2023-11-06 16:32] LABS: ADD UA MICROSCOPIC YES
[2023-11-06 16:45] LABS: BACTERIA,URINE RARE /HPF (None Seen); MUCUS,URINE RARE LPF (None Seen); RBC,URINE 0-1 /HPF (0-1); SQUAMOUS EPITHELIAL CELL,UR RARE /HPF (0-2)
[2023-11-06] MEDS ORDERED: IBUP-2077 PO (16:56)
== END 2023-11-06 17:14 | disposition home or self-care (01) ==
LOC: EDH 13:17
DX: K80.20 Calculus of gallbladder without cholecystitis without obstruction (principal); K80.50 Calculus of bile duct without cholangitis or cholecystitis without obstruction; D64.9 Anemia, unspecified; I10 Essential (primary) hypertension
CPT/HCPCS: 99285; 74177; 96374; 96361; 80053; 83690; 85025; 81001; 36415; J7030; J1885; Q9967

== ENCOUNTER → 2023-11-28 | Outpatient (CLI) | payer OTHER, MEDICARE ==
[~2023-11-28] MED LIST changes: +IBUP-2077 PO
== END | disposition home or self-care (01) ==
LOC: SHCH 10:11
PROVIDERS: ATTEND Internal Medicine Cardiovascular Disease
DX: I65.23 Occlusion and stenosis of bilateral carotid arteries (principal)
CPT/HCPCS: 93880

== ENCOUNTER 2023-12-08 21:17 | Emergency (ER) | payer OTHER, MEDICARE ==
[~2023-12-08] VITALS: Ht 175.3 cm; Wt 93.4 kg
[2023-12-08] MEDS: ACETAMINOPHEN 500 MG TABLET PO STA (21:59)
[2023-12-08 22:15] LABS: BASOPHILS # (AUTO) 0.01 K/uL (0.00-0.20); BASOPHILS % (AUTO) 0.1 % (0.0-5.0); EOSINOPHILS # (AUTO) 0.15 K/uL (0.00-0.70); EOSINOPHILS % (AUTO) 2.1 % (0.0-8.0); HEMATOCRIT 35.8 % (42-54); IMMATURE GRANULOCYTE ABSOLUTE 0.02 K/uL (0-1); LYMPHOCYTES # (AUTO) 1.4 K/uL (1.0-4.8); LYMPHOCYTES % (AUTO) 19.8 % (21.0-51.0); MEAN CORPUSCULAR HEMOGLOBIN 30.5 pg (27.0-33.0); MEAN CORPUSCULAR HGB CONC 32.7 g/dL (32.0-36.0); MEAN CORPUSCULAR VOLUME 93.2 fL (79-99); MONOCYTES # (AUTO) 0.6 K/uL (0.1-1.0); MONOCYTES % (AUTO) 8.6 % (3.0-13.0); NEUTROPHILS # (AUTO) 4.9 K/uL (1.8-7.7); NEUTROPHILS % (AUTO) 69.1 % (40.0-77.0); PLATELET COUNT (AUTO) 157 K/uL (130-400); RED BLOOD CELL COUNT(AUTO) 3.84 MIL/uL (4.50-6.20); RED CELL DISTRIBUTION WIDTH 13.6 % (11.0-15.5); WHITE BLOOD COUNT (AUTO) 7.1 K/uL (4.8-10.8)
[2023-12-08 22:24] LABS: POTASSIUM 4.1 mmol/L (3.5-5.1)
[2023-12-08 22:29] LABS: ALBUMIN 2.9 g/dL (3.5-5.0); BILIRUBIN,TOTAL 0.5 mg/dL (0.2-1.0); TOTAL PROTEIN, SERUM 6.4 g/dL (6.0-8.3)
[2023-12-08] MEDS ORDERED: IOHEXOL-350 75 ML VIAL IV ONE (22:59)
[2023-12-09 00:17] VITALS: BP 144/59; PULSE 64; RESP 16; O2SAT 97
== END 2023-12-09 00:39 | disposition home or self-care (01) ==
LOC: EDH 21:17
DX: K80.20 Calculus of gallbladder without cholecystitis without obstruction (principal); K57.90 Diverticulosis of intestine, part unspecified, without perforation or abscess without bleeding; I10 Essential (primary) hypertension; K21.9 Gastro-esophageal reflux disease without esophagitis; Z79.82 Long term (current) use of aspirin; Z85.46 Personal history of malignant neoplasm of prostate; Z98.890 Other specified postprocedural states
CPT/HCPCS: 99285; 74177; 80053; 85025; 36415; Q9967

== ENCOUNTER → 2024-05-12 | Outpatient (CLI) | payer OTHER, MEDICARE ==
[2024-05-12 10:37] LABS: ALBUMIN 3.4 g/dL (3.5-5.0); BILIRUBIN,TOTAL 0.9 mg/dL (0.2-1.0); CREATININE 1.1 mg/dL (0.5-1.3); POTASSIUM 5.3 mmol/L (3.5-5.1); TOTAL PROTEIN, SERUM 7.2 g/dL (6.0-8.3)
== END | disposition home or self-care (01) ==
LOC: LAB 08:46
PROVIDERS: ATTEND Internal Medicine Gastroenterology
DX: R10.33 Periumbilical pain (principal)
CPT/HCPCS: 36415; 80053

== ENCOUNTER → 2024-05-14 | Outpatient (CLI) | payer OTHER, MEDICARE ==
[~2024-05-14] MED LIST changes: +IOHEXOL-350 75 ML VIAL IV ONE
--- NOTE | 2024-05-14 09:58 | HMCIMG ---
CT ABDOMEN/PELVIS W/CONTRAST HISTORY: Periumbilical pain COMPARISON: None TECHNIQUE: Multiple sequential axial images of the abdomen and pelvis were obtained from the dome of the diaphragm through symphysis pubis. Patient was given 75 cc of Omnipaque through intravenous route. Oral contrast was given. FINDINGS: No pleural effusion is seen bilaterally. There are bilateral interstitial fibrosis. Coronary arterial calcifications are seen. There is no evidence of parenchymal disease or pulmonary nodule of the visualized lower lungs. Degenerative changes of the thoracolumbar spine are present. The heart is not enlarged. Grade 1 anterolisthesis is seen at the L4-5 level with disc space narrowing. Liver measures 16 cm. Small hiatal hernia is seen. No bowel obstruction is seen. Bilateral renal cortical scarring is seen. The liver, spleen, adrenal glands and pancreas are unremarkable. There is no evidence of hydronephrosis bilaterally. No evidence of renal stone is seen. There is diverticulosis. Fecal material is seen in the colon. There are normal size retroperitoneal and mesenteric lymph nodes. No ascites is seen. Atherosclerotic changes are present. 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 Pelvic sidewalls are symmetric bilaterally. Bladder is well distended without wall thickening. IMPRESSION: 1. Diverticulosis. No bowel obstruction is seen. No ascites is seen. Atherosclerosis. CT was performed with one or more following dose reduction techniques: automated exposure control, adjustment of the mA and kv according to patient's size, or use of a iterative reconstruction technique.
== END | disposition home or self-care (01) ==
LOC: RAH 08:39
PROVIDERS: ATTEND Internal Medicine Gastroenterology
DX: K57.30 Diverticulosis of large intestine without perforation or abscess without bleeding (principal); K44.9 Diaphragmatic hernia without obstruction or gangrene; R10.33 Periumbilical pain; I70.90 Unspecified atherosclerosis; J84.10 Pulmonary fibrosis, unspecified; I25.10 Atherosclerotic heart disease of native coronary artery without angina pectoris; R10.815 Periumbilic abdominal tenderness; M47.815 Spondylosis without myelopathy or radiculopathy, thoracolumbar region; M43.16 Spondylolisthesis, lumbar region; M48.061 Spinal stenosis, lumbar region without neurogenic claudication
CPT/HCPCS: 74177; Q9967

== ENCOUNTER → 2025-01-02 | Outpatient (CLI) | payer OTHER, MEDICARE ==
[~2025-01-02] MED LIST changes: +IOHEXOL 350 MG/ML 100ML INFUS..BTL IV ONE; -IOHEXOL-350 75 ML VIAL IV ONE; -TAMS-1 PO; +TAMS-55 PO
--- NOTE | 2025-01-02 11:51 | HMCIMG ---
CT HEAD/BRAIN W/WO CONTRAST CLINICAL HISTORY: Personal history of other (healed) physical injury and trauma, TECHNIQUE:??CT head was performed pre and post intravenous administration of IV contrast. CT was performed with one or more of the following dose reduction techniques: automated exposure control, adjustment of the mA and/or kV according to patient size, or use of iterative reconstruction technique CONTRAST: 50 cc Omnipaque given intravenously. FINDINGS:? Sulci and hemispheres demonstrate global atrophy.. Ventricular system is mildly dilated due to atrophy with periventricular ischemic white matter changes.. Basal cisterns are patent. There is no mass, bleed, shift, or acute territorial infarct identified. No enhancing lesions are seen above or below the tentorium. Bone windows show the calvarium is intact. Bony orbits, visualized paranasal sinuses and mastoids are clear. The contrast study demonstrated no enhancing lesion seen. IMPRESSION:?? No acute process seen in the CT of the head with and without contrast Global atrophy with periventricular ischemic white matter changes.
--- NOTE | 2025-01-02 13:17 | HMCIMG ---
CLINICAL INDICATION: Dysphonia with disorder characterized by "the PROBLEM COMPARISON: None TECHNIQUE: Multiple contiguous axial images were obtained though the neck without and with IV contrast, images were reconstructed in the sagittal and coronal planes. Cc of Omnipaque 350 was used for intravenous contrast. Dose optimization technique was used including automated exposure control and adjustment of mA and/or kV based on patient's size. FINDINGS: NASOPHARYNX: The pharynx reveals normal contour with normal appearance of the fossa of Rosenmuller and parapharyngeal fat. ORAL CAVITY: The tongue, tongue base, glossotonsillar and glossopharyngeal sulci are normal. OROPHARYNX: The tonsillar pillars are normal in appearance. The preglottic fat is preserved. The vallecula is patent. SUPRAGLOTTIC: The supraglottic structures are normal. LARYNX: The vocal cords are normal in appearance. The paraglottic fat is preserved. SUBGLOTTIS: The subglottic structures are normal. There is atherosclerotic changes of the carotid arteries with calcified plaque with no evidence of any focal stenosis. Both internal carotid arteries appears to be tortuous. 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 No acute process seen in CT of the neck with and without intravenous contrast.
== END | disposition home or self-care (01) ==
LOC: RAH 08:22
PROVIDERS: ATTEND Family Medicine
DX: I67.82 Cerebral ischemia (principal); G31.89 Other specified degenerative diseases of nervous system; G93.89 Other specified disorders of brain; I77.1 Stricture of artery; R49.0 Dysphonia; R51.9 Headache, unspecified; M47.812 Spondylosis without myelopathy or radiculopathy, cervical region; M53.82 Other specified dorsopathies, cervical region; Z87.828 Personal history of other (healed) physical injury and trauma
CPT/HCPCS: 70470; 70492; Q9967